=== PATIENT | male | born 1945 | race Caucasian/White ===

== ENCOUNTER → 2016-10-16 | Outpatient (CLI) | payer OTHER ==
[~2016-10-16] MED LIST: ATOR10TA88 PO; HYDR25TA4 PO; LEVO25TA PO; LOSA100T65 PO; OMEG10007 PO
[2016-10-16 11:25] LABS: ALT/SGPT 42 U/L (12-78); AST/SGOT 21 U/L (15-37); BLOOD UREA NITROGEN 19 mg/dl (7-18); BUN/CREATININE RATIO 15.9 (10-20); CARBON DIOXIDE 24 mmol/L (21-32); CHLORIDE 108 mmol/L (98-107); GLUCOSE 103 mg/dl (70-99); POTASSIUM 3.5 mmol/L (3.5-5.1); SODIUM 142 mmol/L (136-145)
[2016-10-16 11:36] LABS: ALKALINE PHOSPHATASE 23 U/L (45-117); CHOLESTEROL 173 mg/dl (0-200); HDL CHOLESTEROL 57 mg/dl; LDL CHOLESTEROL CALCULATED 82 mg/dl; TRIGLYCERIDES 172 mg/dl (0-150); VERY LOW DENSITY LIPOPROT CALC 34 mg/dl
== END | disposition home or self-care (01) ==
LOC: C.LABBC 07:48
PROVIDERS: ATTEND Family Medicine
DX: I10 Essential (primary) hypertension (principal); E78.5 Hyperlipidemia, unspecified; E03.9 Hypothyroidism, unspecified

== ENCOUNTER → 2017-04-06 | Outpatient (CLI) | payer OTHER ==
[2017-04-06 11:24] LABS: ALT/SGPT 40 U/L (12-78); BLOOD UREA NITROGEN 19 mg/dl (7-18); BUN/CREATININE RATIO 17.4 (10-20); CARBON DIOXIDE 26 mmol/L (21-32); CHLORIDE 107 mmol/L (98-107); CHOLESTEROL 170 mg/dl (0-200); GLUCOSE 101 mg/dl (70-99); POTASSIUM 3.6 mmol/L (3.5-5.1); SODIUM 140 mmol/L (136-145)
[2017-04-06 11:35] LABS: ALB/GLOB RATIO 1.1 (0.9-2); ALKALINE PHOSPHATASE 25 U/L (45-117); AST/SGOT 21 U/L (15-37); CHOLESTEROL/HDL RATIO 2.7; HDL CHOLESTEROL 62 mg/dl; LDL CHOLESTEROL CALCULATED 82 mg/dl; TRIGLYCERIDES 132 mg/dl (0-150); VERY LOW DENSITY LIPOPROT CALC 26 mg/dl
== END | disposition home or self-care (01) ==
LOC: C.LABBC 07:35
PROVIDERS: ATTEND Family Medicine
DX: I10 Essential (primary) hypertension (principal); E78.5 Hyperlipidemia, unspecified; E03.9 Hypothyroidism, unspecified; Z12.5 Encounter for screening for malignant neoplasm of prostate

== ENCOUNTER 2017-07-25 12:14 | Emergency (ER) | payer OTHER ==
[~2017-07-25] VITALS: Ht 177.8 cm; Wt 82.0 kg
[~2017-07-25 12:14] MED LIST changes: +ATOR10TA82 PO; -ATOR10TA88 PO
[2017-07-25 12:20] VITALS: Ht 177.8 cm; Wt 82.0 kg
[2017-07-25] MEDS ORDERED: LEVO75TA5 PO (12:30)
[2017-07-25] MEDS ORDERED: PSYL0.524 PO (12:30)
[2017-07-25] MEDS ORDERED: AMOX875T PO (12:52)
--- NOTE | 2017-07-25 12:54 | EMERGENCY ROOM VISIT NOTE ---
ED Visit Note First contact with patient: 12:27 CHIEF COMPLAINT: Dog bite of the left hand HISTORY OF PRESENT ILLNESS: This is a 72-year-old male who presents to the emergency department after a dog bite to his left hand earlier today. Patient states that it was his dog, and he is up-to-date on immunizations. He states that his dog got into a tussle with another dog he tried to pull his dog away and when he did, that his dog bit him on the left hand. He reports moderate amount of bleeding initially, this has slowed. He is unsure of his last tetanus but thinks it could be more than 10 years. He is not on any blood thinners. He denies any numbness, tingling, or weakness of the hand after the injury. He denies any other injuries. The area has not been painful and the patient doesn't think there is anything in the wound. REVIEW OF SYSTEMS: A complete 6 point review of systems was reviewed with the patient with pertinent positives and negatives as per history of present illness. All else were negative. PMH: The patient is healthy; there is no significant medical or surgical history. SOCIAL HISTORY: Patient lives at home. PHYSICAL EXAM: Vital Signs: Reviewed Nurse's notes. There are 4 small puncture wounds on the lateral and palmar aspect of the left hand. No foreign material is seen in the wound. The epidermis was lifted off the puncture site and the base of the wound inspected. No foreign material could be seen there. The area was not particularly tender or swollen. EMERGENCY DEPARTMENT COURSE: I examined the patient. Tetanus immunization was given. The wound was cleaned with iodine and bacitracin and a bandage applied. Rx for Augmentin provided to the patient, first dose in ED. The patient was instructed on follow-up, wound care, and strict return precautions should his symptoms worsen or signs of infection, he verbalized understanding. The patient was discharged home in stable condition and ambulatory. Medication Reconciliation: I attest that I have personally reviewed the patient' s current medication list. Blood pressure screening: The patient was found to have an elevated blood pressure, this was felt to be situational. The patient was discussed with Dr. Ray, who also independently evaluated the patient and agrees with my assessment and disposition. Current/Historical Medications Scheduled Amoxicillin & Pot Clavulanate (Augmentin 875-125 mg), 1 TAB PO BID Atorvastatin (Lipitor), 10 MG PO QAM Fish Oil ([place]-3), 1 CAP PO QAM Hydrochlorothiazide (Hctz), 25 MG PO QAM Levothyroxine Sodium (Levothyroxine Sodium), 1 TAB PO DAILY Losartan Potassium (Cozaar), 100 MG PO QAM Psyllium (Metamucil), 2 TSP PO DAILY Allergies Coded Allergies: No Known Allergies (Verified , 07/25/17) Vital Signs Date Time Temp Pulse Resp B/P (MAP) Pulse Ox O2 Delivery O2 Flow Rate FiO2 07/25/17 13:52 36.5 84 16 136/92 96 07/25/17 12:20 36.5 70 16 147/87 97 Medications Administered Medications (Trade) Dose Ordered Sig/Ana Route Start Time Stop Time Status Last Admin Dose Admin Diphtheria/ Pertussis/Tetanus Vacc (Adacel Inj) 0.5 ml ONCE ONCE IM. 07/25/17 13:00 07/25/17 13:01 DC 07/25/17 12:54 0.5 ML Amoxicillin/ Clavulanate Potassium (Augmentin Tab) 875 mg ONE ONCE PO 07/25/17 13:00 07/25/17 13:01 DC 07/25/17 12:54 875 MG Amoxicillin/ Clavulanate Potassium (Augmentin Tab) 875 mg BID PO 07/25/17 21:00 07/25/17 21:00 DC 07/25/17 12:54 875 MG Departure Information Impression Primary Impression: Dog bite of left hand Dispostion Home / Self-Care Condition GOOD Prescriptions Amoxicillin & Pot Clavulanate (Augmentin 875-125 mg) 1 Tab Tab 1 TAB PO BID for 9 Days, #18 TAB Prov: Enid Kamara CRNP 07/25/17 Referrals Hannah Yao DO (PCP) Patient Instructions ED Bite Dog, ED Contusion Hand, My [facility] Additional Instructions You have been seen in the emergency department for a dog bite to your left hand. You were prescribed Augmentin to be taken twice a day for 10 days. This is an antibiotic. All antibiotics have the potential to cause diarrhea, you should eat yogurt or take a probiotic daily to help prevent gastrointestinal side effect. Stop this medication and contact a medical provider if you were to develop any significant adverse side effects including: wheezing, shortness of breath, passing out, vomiting, or a diffuse rash. Always take antibiotics as directed and COMPLETE the ENTIRE course regardless of the improvement of your symptoms. Observe the area closely for signs of infection such as redness, swelling, increasing pain, streaking up the hand/arm, pus drainage, fevers/chills. Please seek immediate medical attention for any of these symptoms. Please follow-up with your primary care provider in the next few days to ensure that your wound is healing properly. Problem Qualifiers Primary Impression: Dog bite of left hand Encounter type: initial encounter Qualified Codes: S61.452A - Open bite of left hand, initial encounter; W54.0XXA - Bitten by dog, initial encounter
[2017-07-25] MEDS ORDERED: DIPHTHERIA/TETANUS/PERTUSSIS 0.5 ML SYR/VIAL IM. ONE (13:00)
[2017-07-25] MEDS ORDERED: AMOXICILLIN/CLAVULANATE TAB 875 MG TAB PO ONE (13:00)
--- NOTE | 2017-07-25 13:39 | EMERGENCY ROOM VISIT NOTE ---
ED Visit Note First contact with patient: 12:27 This Patient was discussed with the nurse practitioner, Enid Kamara NP. The pertinent historical and physical exam findings were confirmed. I agree with the studies ordered and with the interpretations of these studies. I agree with the disposition and care plan.
[2017-07-25 13:52] VITALS: BP 136/92; PULSE 84; TEMP 36.5; O2SAT 96
[2017-07-25] MEDS ORDERED: AMOXICILLIN/CLAVULANATE TAB 875 MG TAB PO SCH (21:00)
== END 2017-07-25 13:53 | disposition home or self-care (01) ==
LOC: C.EDB 12:15 → C.EDD 13:53
DX: S61.452A Open bite of left hand, initial encounter (principal); W54.0XXA Bitten by dog, initial encounter; Z23 Encounter for immunization

== ENCOUNTER → 2017-11-19 | Outpatient (CLI) | payer OTHER ==
[~2017-11-19] MED LIST changes: -LEVO25TA PO; +LEVO75TA5 PO; +PSYL0.524 PO
[2017-11-19 10:37] LABS: HEMATOCRIT 40.9 % (42-52); HEMOGLOBIN 14.6 g/dL (14.0-18.0); MEAN CELL VOLUME 96.2 fL (80-100); MEAN CORPUSCULAR HEMOGLOBIN 34.4 pg (25-34); MEAN CORPUSCULAR HGB CONC 35.7 g/dl (32-36); MEAN PLATELET VOLUME 9.6 fL (7.4-10.4); PLATELET COUNT 222 K/uL (130-400); RED CELL DISTRIBUTION WIDTH CV 12.8 % (11.5-14.5); RED CELL DISTRIBUTION WIDTH SD 44.1 fL (36.4-46.3); WHITE BLOOD COUNT 5.21 K/uL (4.8-10.8)
[2017-11-19 11:25] LABS: ALBUMIN 3.9 gm/dl (3.4-5.0); ALT/SGPT 50 U/L (12-78); AST/SGOT 33 U/L (15-37); BLOOD UREA NITROGEN 24 mg/dl (7-18); CALCIUM 9.3 mg/dl (8.5-10.1); CARBON DIOXIDE 24 mmol/L (21-32); CREATININE 1.08 mg/dl (0.60-1.40); GLUCOSE 105 mg/dl (70-99); POTASSIUM 3.5 mmol/L (3.5-5.1); SODIUM 138 mmol/L (136-145)
[2017-11-19 11:36] LABS: ALKALINE PHOSPHATASE 31 U/L (45-117); CHOLESTEROL 163 mg/dl (0-200); LDL CHOLESTEROL CALCULATED 77 mg/dl; TOTAL PROTEIN 7.7 gm/dl (6.4-8.2)
== END | disposition home or self-care (01) ==
LOC: C.LABBC 07:37
PROVIDERS: ATTEND Family Medicine
DX: I10 Essential (primary) hypertension (principal); E78.5 Hyperlipidemia, unspecified; E03.9 Hypothyroidism, unspecified

== ENCOUNTER 2020-03-23 07:48 | Observation (INO) ==
--- NOTE | 2020-02-27 14:20 | PAT Medication Instructions ---
Medication Instructions Date of Service February 27, 2020 Home Medications Medication Instructions Recorded atorvastatin 10 mg tablet 10 mg PO DAILY #90 tab 01/04/19 oxycodone-acetaminophen [Percocet] 1 tab PO Q6H PRN #20 tab 01/19/20 atorvastatin 10 mg tablet 10 mg PO DAILY omega-3 360 jd-old-qwx-fish oil 1,200 mg capsule,delayed release 1 cap PO QAM magnesium 200 mg tablet 200 mg PO DAILY hydrochlorothiazide 25 mg PO QAM levothyroxine 75 mcg PO QAM losartan 100 mg PO QAM potassium chloride 10 meq PO QAM oxycodone-acetaminophen [Percocet] 1 tab PO Q6H PRN STOP taking 2 weeks before surgery omega-3 360 rx-wcg-jpy-fish oil 1,200 mg capsule,delayed release 1 cap PO QAM DO NOT take the morning of surgery magnesium 200 mg tablet 200 mg PO DAILY hydrochlorothiazide 25 mg PO QAM losartan 100 mg PO QAM potassium chloride 10 meq PO QAM Take morning of surgery With a small sip of water, OTHERWISE NOTHING TO EAT OR DRINK AFTER MIDNIGHT: atorvastatin 10 mg tablet 10 mg PO DAILY levothyroxine 75 mcg PO QAM oxycodone-acetaminophen [Percocet] 1 tab PO Q6H PRN (okay to take up to 4 hours prior to surgery if needed) Take evening before surgery oxycodone-acetaminophen [Percocet] 1 tab PO Q6H PRN (if needed) Other Notes If you have any questions please call us at [phone] or [phone] or [phone] or [phone]
--- NOTE | 2020-02-29 10:24 | Anesthesiology Consultation ---
Date of Service February 29, 2020 Assessment & Plan (1) Encounter for pre-operative examination: Chart Review Chart Review: Acceptable Risk for Surgery (pending preop Covid testing ) and Patient seen in Pre Admission Testing Per PAT appt on 02/29/20, patient denies any recent travel. Scheduled for preop Covid testing 03/19. Educated on importance of self quarantining, social distancing and wearing mask in public both for the patient and household contacts. Right CTR 01/19/20= Done under MAC- no issues noted Teaching & Discussion Pre-Anesthesia Teaching/Discussion Notes: Instructed NPO after midnight before surgery,except medications with 15 cc of water. Medication instructions provided according to the PAT guidelines. History Surgery Operation Date: 03/23/20 13:15 Proposed Procedures p Right Total Knee Arthroplasty - Alex Taylor DO Height/Weight Height: 5 ft 10 in Weight: 83.4 kg Allergies Allergy/AdvReac Type Severity Reaction Status Date / Time No Known Allergies Allergy Verified 02/24/20 09:27 Medications Home Medications Medication Instructions Recorded Confirmed Last Taken omega-3 360 ql-wwz-iqh-fish oil 1 cap PO QAM 01/04/19 02/24/20 Unknown 1,200 mg capsule,delayed release magnesium 200 mg tablet 200 mg PO DAILY 07/29/19 02/24/20 Unknown losartan 100 mg PO QAM 01/10/20 02/24/20 01/19/20 05:15 oxycodone-acetaminophen [Percocet] 1 tab PO Q6H PRN #20 tab 01/19/20 02/24/20 Unknown atorvastatin 10 mg tablet 10 mg PO DAILY #90 tab 02/29/20 Unknown hydrochlorothiazide 25 mg tablet 25 mg PO QAM #90 tab 02/29/20 Unknown levothyroxine 75 mcg tablet 75 mcg PO QAM #90 tab 02/29/20 Unknown potassium chloride 10 mEq 10 meq PO QAM #90 cap 02/29/20 Unknown capsule,extended release Past Medical History Medical History (Updated 02/29/20 @ 10:49 by Zainab Carr PA-C) Benign essential hypertension Hyperlipidemia Hypothyroidism Exercise / Class Metabolic Activity II 4-5 Yardwork/Stairs/Walk up hill (one flight stairs - no chest pain or SOB) Past Family History Family History Mother Uterine cancer Father Lymph node cancer Denies family history of Ovarian cancer Prostate cancer Myocardial infarction Breast cancer Colorectal cancer Past Surgical History Surgical History Glaucoma filtering bleb of left eye History of carpal tunnel surgery of right wrist History of colonoscopy History of eye surgery "FILTERING BLOOD" History of tooth extraction S/P cataract surgery LEFT Past Anesthesia History No Hx of Anesthesia Complications and No Family Hx of Anesthesia Complications History of PONV No Hx of Motion Sickness and History of PONV (history of mild nausea post op ) Social History Smoking Status: Former smoker tobacco type: cigarettes Do You Dip or Chew Tobacco: No Smoking End Date: 25 years ago Hx Alcohol Use: Yes Alcohol type: beer and wine alcohol intake frequency: 0-2 drinks per day (1 glass daily of wine ) Hx Substance Use: No substance use type: does not use Review of Systems Occ snoring- no witnessed apnea- no history of sleep study Patient denies chest pain, shortness of breath, dyspnea on exertion, reflux, c ough, wheezing, palpitations. No hx of seizures, stroke, [place]. No hx of blood clots or blood transfusions Physical Exam Vital Signs VITALS BP 154/83 P 79 TEMP 98.2 SP02 97% RESP 16 Constitutional no acute distress ENMT Mouth: no TMJ clicking Thyromental Distance: > or= 3.5 Finger Breadths (3.5) Mallampati Class: II Full dentures on top and bottom Neck + limited neck extension (minimal ) Respiratory normal respiratory effort; no respiratory distress Auscultation: lungs clear to auscultation bilaterally; no wheezes Cardiovascular Rate/Rhythm: regular rate and regular rhythm Heart Sounds: no murmur Vessels: no carotid bruit Musculoskeletal Spine: no pain with cervical ROM Neurologic moves all extremities Psychiatric Orientation: alert Testing Laboratory Results 02/29/20 10:51 02/29/20 10:51 PT 10.9 Seconds (9.0-12.0) 02/29/20 10:51 INR 1.0 (0.9-1.1) 02/29/20 10:51 APTT 32.2 Seconds (21.0-31.0) H 02/29/20 10:51 Blood Type O Positive 08/05/20 10:51 Antibody Screen NEGATIVE 02/29/20 10:51 Electrocardiogram Date: 02/29/20 Findings: + NSR @ (70) Chest X-Ray Date: 02/29/20 Findings: + NAD Hiatal hernia
--- NOTE | 2020-02-29 11:09 | XRay Report ---
XR chest Pre-admission PA/Lat HISTORY: 74 years-old Male u preoperative exam. No acute chest complaints COMPARISON: CT soft tissue neck 05/05/2016 TECHNIQUE: PA and lateral views of the chest FINDINGS: Cardiomediastinal and hilar silhouettes are within normal limits. Calcified plaque of the thoracic ao rta can't. Hiatal hernia. No pneumothorax, pleural effusion, airspace consolidation or overt pulmonar y edema. Mild convex left curvature of the upper thoracic spine. Degenerative changes of the shoulder s and spine. IMPRESSION: 1. No acute process. 2. Hiatal hernia. ACT 112: Negative or not required by law. The above report was generated using voice recognition software. It may contain grammatical, syntax o r spelling errors. Electronically signed by: Kvng Sharp M.D. 02/29/2020 11:08 AM
--- NOTE | 2020-02-29 11:58 | Electrocardiogram Report ---
Test Reason : Blood Pressure : / mmHG Vent. Rate : 070 BPM Atrial Rate : 070 BPM P-R Int : 194 ms QRS Dur : 086 ms QT Int : 410 ms P-R-T Axes : 071 -14 039 degrees QTc Int : 442 ms Normal sinus rhythm Normal ECG No previous ECGs available Confirmed by Ryan Garcia ([id number]) on 02/29/2020 11:58:06 AM Referred By: Alex Taylor Confirmed By:Grzegorz Garcia
[2020-02-29 12:00] LABS: Basophils # (auto) 0.02 K/uL (0-0.2); Basophils % (auto) 0.4 %; Eosinophils # (auto) 0.14 K/uL (0-0.5); Eosinophils % (auto) 2.9 %; Hematocrit (blood only) 40.4 % (42-52); Hemoglobin 14.5 g/dL (14.0-18.0); Immature Granulocytes # (auto) 0.02 K/uL (0.00-0.02); Immature Granulocytes % (auto) 0.4 %; Lymphocytes # (auto) 1.69 K/uL (1.2-3.4); Lymphocytes % (auto) 34.6 %; Mean Corpuscular Hemoglobin 34.6 pg (25-34); Mean Corpuscular Hgb Conc 35.9 g/dL (32-36); Mean Corpuscular Volume 96.4 fL (80-100); Mean Platelet Volume 9.8 fL (7.4-10.4); Monocytes # (auto) 0.55 K/uL (0.11-0.59); Monocytes % (auto) 11.2 %; Neutrophils # (auto) 2.47 K/uL (1.4-6.5); Neutrophils % (auto) 50.5 %; Platelet Count 209 K/uL (130-400); RDW Coefficient of Variation 12.4 % (11.5-14.5); RDW Standard Deviation 43.3 fL (36.4-46.3); Red Blood Count 4.19 M/uL (4.7-6.1); White Blood Count 4.89 K/uL (4.8-10.8)
[2020-02-29 12:12] LABS: Partial Thromboplastin Ratio 1.2; Partial Thromboplastin Time 32.2 Seconds (21.0-31.0); Prothrombin Time 10.9 Seconds (9.0-12.0)
[2020-02-29 13:30] LABS: BUN Creatinine Ratio 23.4 (10-20); Calcium 9.6 mg/dl (8.5-10.1); Creatinine Clr Calc Pharmacy 57.2 ml/min; Est GFR (African American) 70.8; Est GFR (Non-African American) 61.1; Potassium 3.2 mmol/L (3.5-5.1)
--- NOTE | 2020-03-22 06:54 | History & Physical Report ---
Date of Service March 22, 2020 Assessment & Plan (1) Osteoarthritis of right knee: We will proceed with a right total knee arthroplasty. Postoperatively he will be started on aspirin for DVT prophylaxis and kept overnight in the hospital for postoperative medical management. He plans to use energy physical therapy upon discharge. Present on Admission?: Yes History of Present Illness Chief Complaint: Primary osteoarthritis of the right knee Primary Care Provider: Juana Ortega MD Dave is a pleasant 74-year-old male who is been dealing with chronic increasing right knee pain. X-rays and clinical examination have been diagnostic for advanced osteoarthritis of the right knee. After failing extensive conservative treatment, he has elected to proceed with a right total knee arthroplasty. Allergies Allergy/AdvReac Type Severity Reaction Status Date / Time No Known Allergies Allergy Verified 02/24/20 09:27 Home Medications Home Medications Medication Instructions Recorded Confirmed Type omega-3 360 ap-tbd-eeb-fish oil 1 cap PO QAM 01/04/19 02/24/20 History 1,200 mg capsule,delayed release magnesium 200 mg tablet 200 mg PO DAILY 07/29/19 02/24/20 History losartan 100 mg PO QAM 01/10/20 02/24/20 History oxycodone-acetaminophen [Percocet] 1 tab PO Q6H PRN #20 tab 01/19/20 02/24/20 Rx atorvastatin 10 mg tablet 10 mg PO DAILY #90 tab 02/29/20 Rx hydrochlorothiazide 25 mg tablet 25 mg PO QAM #90 tab 02/29/20 Rx levothyroxine 75 mcg tablet 75 mcg PO QAM #90 tab 02/29/20 Rx potassium chloride 10 mEq 10 meq PO QAM #90 cap 02/29/20 Rx capsule,extended release Past Med/Surg History Medical History Benign essential hypertension Hyperlipidemia Hypothyroidism Surgical History Glaucoma filtering bleb of left eye History of carpal tunnel surgery of right wrist History of colonoscopy History of eye surgery "FILTERING BLOOD" History of tooth extraction S/P cataract surgery LEFT Family History Mother Uterine cancer Father Lymph node cancer Denies family history of Ovarian cancer Prostate cancer Myocardial infarction Breast cancer Colorectal cancer Social History Smoking Status: Former smoker Smoking End Date: 25 years ago; Second Hand Exposure: Yes (past exposure); Do You Dip or Chew Tobacco: No; Tobacco Cessation Education Requested by Patient: No Hx Alcohol Use: Yes Alcohol type: beer and wine Hx Substance Use: No Preferred Language: Kinyarwanda Communication Ability: Effective Visual Impairment: No Limitations Hearing Ability: Normal Nurse Assistant Required: No Beliefs That Will Affect Care: None marital status: Current Living Situation: Spouse current occupational status: retired Feels Safe at Home: Yes Safety Concerns: Feels Safe At This Time Dental Care, Regularly: No Physical Activity Frequency: Does not Exercise Seatbelt Use: always Sunscreen Use: No Review of Systems Review of Systems: All systems reviewed & are unremarkable except as noted in HPI & below Physical Exam Constitutional: WD/WN, vitals as above Eyes: PERRL, conjunctivae normal, anicteric sclerae ENMT: external ear and nose normal, oropharynx normal Neck: trachea midline, no thyromegaly Respiratory: normal respiratory effort Cardiovascular: RRR, no murmur, no edema Gastrointestinal (Abdomen): normal bowel sounds, soft, nontender, no hepatosplenomegaly Musculoskeletal: On physical examination of the right knee there is a trace effusion. There is near full range of motion and no evidence of instability. There is significant tenderness palpation along the medial and lateral joint lines and over the distal femoral condyles. Psychiatric: A+Ox3, euthymic affect Results & Data Results & Data ([facility]) Diagnostic Findings Radiographs of the right knee demonstrate advanced osteoarthritis with joint space narrowing osteophyte formation and pquf-ik-mymq articulation. PG Care Time/CCT Total # of Minutes Spent Total Time Spent with Patient: Total time spent is greater than 50% in coordination of care (as documented) at patient's floor/unit and/or counseling patient: Coding Level of Care Code 90639 Initial Inpt Care Lvl 2 Diagnoses Osteoarthritis of right knee M17.11
[~2020-03-23 07:48] MED LIST changes: -ATOR10TA82 PO; +BUPIVACAINE 0.5 % 5 MG/1 ML PF 10ML VIAL ONE; +BUPIVACAINE/EPINEPHRINE 0.25% 1:200,000 30 ML VIAL ONE; +CEFAZOLIN 2000MG 2,000 MG/15 ML SYR IV SCH; +DEXAMETHASONE SOD INJ 4 MG/ML VIAL ONE; +FAMOTIDINE 20 MG TAB PO SCH; +GABAPENTIN 300 MG CAP PO SCH; -HYDR25TA4 PO; -LEVO75TA5 PO; +LIDOCAINE HCL 2% 2 ML VIAL/AMP(20MG/ML) INFIL ONE; -LOSA100T65 PO; +LR 500ML BOLUS, THEN 15ML/HR IV SCH; +LR 60ML/HR IV SCH; +MIDAZOLAM HCL 1 MG/ML 2ML VIAL ONE; -OMEG10007 PO; +ONDANSETRON INJ 2 MG/ML 2 ML VIAL ONE; +PROPOFOL IV EMULSION 10 MG/ML 20 ML VIAL IV ONE; -PSYL0.524 PO; +ROPIVACAINE 0.5% HCL/PF 150 MG, BUPIVACAINE 0.5% MPF 30 ML, EPINEPHrine 30MG/30ML (OR U... INSTIL SCH; +TRANEXAMIC ACID 1,000 MG **IV Intra-op IV SCH; +TRANEXAMIC ACID 1,000 MG **IV Pre-op IV SCH; +fentaNYL citrate 100 MCG/2 ML VIAL ONE
--- NOTE | 2020-03-23 08:25 | History & Physical Bridge Note ---
Date of Service March 23, 2020 History & Physical Bridge Note I have examined the patient, reviewed the History & Physical and in the interval since the performance of the History & Physical I have noted the following changes of clinical significance: no changes noted
[2020-03-23] MEDS ORDERED: ORTHO JOINT ANESTHETIC ONE (08:54)
[2020-03-23] MEDS ORDERED: fentaNYL citrate 100 MCG/2 ML VIAL IV PRN (09:36)
[2020-03-23] MEDS ORDERED: ATROPINE SULFATE 0.1 MG/ML 10ML SYR IV PRN (09:36)
[2020-03-23] MEDS ORDERED: ePHEDrine sulfate 50 MG/ML AMP IV PRN (09:36)
[2020-03-23] MEDS ORDERED: ONDANSETRON INJ 2 MG/ML 2 ML VIAL IV PRN ×2 (09:36→13:40)
[2020-03-23] MEDS ORDERED: ePHEDrine sulfate 50 MG/ML AMP ONE (10:15)
--- NOTE | 2020-03-23 11:05 | Operative Report ---
PG Post Operative Report Pre & Post Diagnosis Operation Date: 03/23/20 10:20 Pre-Op Diagnosis: Right Knee Degenerative Joint Disease Post-Op Diagnosis: Right Knee Degenerative Joint Disease I identified the patient and participated in the time-out.: Yes Procedure Operation Date: 03/23/20 10:20 Actual Procedures p Right Total Knee Arthroplasty(Right) - Alex Taylor DO Surgeon Alex Taylor DO [employer] Alex Reynaga PAC Estimated Blood Loss 20 Findings Consistent with Post-Op Diagnosis Specimens Right femoral and tibial bone Complications none Disposition Disposition: Recovery Room Indications Dave is a pleasant 74-year-old male who presented my office with chronic increasing right knee pain. X-rays clinical examination were diagnostic for advanced osteoarthritis of the right knee. After failing conservative treatment, he elected proceed with a right total knee arthroplasty. Description of Procedure Implants used: I used a Mirlande Persona total knee arthroplasty system with a size 9 standard femur, F tibia, 32 patella, and a size 13 medial congruent polyethylene bearing. All components were cemented in place with Palacos G cement. Dave arrived [facility] for the above procedure. He was seen in the preoperative holding area and the operative extremity was identified and signed. He was given a preoperative antibiotic, TXA, a spinal anesthetic and an adductor nerve block. He was taken back to the operating room and laid on the table in supine position. He was given basic sedation. The operative knee was then prepped and draped in sterile fashion. A timeout was done, and the patient and the operative extremity was properly identified. A midline incision was made directly over the patella. Dissection was taken down to the extensor mechanism. A subvastus arthrotomy was used. The medial retinaculum was released and the fat pad was mostly excised. The knee was flexed and the ACL, PCL, and meniscus were removed. A drill was sent down the center of the femoral canal followed by an intramedullary kari. Off that kari a distal femoral cutting block was placed. 9 mm was resected off the distal femur at 5 of valgus. A posterior referencing AP sizing guide was then placed on the distal femur. The femur measured to be a size 9 standard. 2 drill holes were placed in 3 of external rotation. A 4-in-1 cutting block was then impacted into place. Anterior, posterior, and chamfer cuts were then made. The proximal tibia was then exposed. An external tibial alignment guide was placed. A tibial cut guide was then anchored in place and the proximal tibia was then resected. The posterior aspect of the knee was then opened up and any additional meniscus fragments and osteophytes were removed. The tibia measured to be a size F. The tibial plate was then placed in the appropriate rotation and the tibia was drilled and punched. Trial components were then placed. I used a size 13 medial congruent polyethylene insert. The knee was brought through a full range of motion and felt to be stable. The peg holes for the femoral component were then drilled. The patella was then everted and 9 mm was resected off the posterior aspect of the patella. The patella measured to be a size 32. 3 peg holes were then drilled. A trial patella was placed. The knee was once again brought through a full range of motion and felt to be stable. Trial components were then removed. The surrounding soft tissues were injected with 100 cc of an orthopedic pain control cocktail. All components were then cemented into place with Palacos G cement. The final polyethylene insert was then snapped into place. Once cement was dry the tourniquet was deflated. Hemostasis was obtained. A dilute betadyne lavage was then done for 3 minutes. The joint was then irrigated with normal saline solution. The subvastus arthrotomy was then closed with #1 Vicryl suture. The skin was closed with 2-0 Vicryl, 3-0V lock suture, and evie. A Silverlon and a soft compressive dressing were placed. He was then transferred to a hospital bed and taken to the postanesthesia care unit in stable condition. He tolerated the procedure well. Alex Reynaga PA-C, was present for the entire procedure. He was critical for patient positioning, prepping, draping, retraction exposure, wound closure and application of sterile dressing. I attest to the content of the Intraoperative Record and any orders documented therein. Any exceptions are noted below.
--- NOTE | 2020-03-23 11:55 | XRay Report ---
RIGHT KNEE 2 VIEWS History: Right total knee arthroplasty. Degenerative arthritis. Postop. FINDINGS: The patient is status post a right total knee arthroplasty. The hardware is intact. No frac ture or dislocation. Skin evie are in place. IMPRESSION: Right total knee arthroplasty. No evidence for hardware complication. ACT 112: Negative or not required by law. Electronically signed by: Suhail Mccarthy M.D. 03/23/2020 11:54 AM
--- NOTE | 2020-03-23 12:33 | Anesthesiology Progress Note ---
Date of Service March 23, 2020 Anesthesia Post Procedure Vital Signs Vital Signs: Temp Pulse Pulse Resp BP BP Pulse Ox 03/23/20 12:15 61 17 107/64 96 03/23/20 12:05 64 19 117/61 96 03/23/20 11:55 66 20 104/68 97 03/23/20 11:45 65 18 102/58 L 94 03/23/20 11:35 67 20 97/60 L 94 03/23/20 11:29 36.1 C L 75 21 103/54 L 93 03/23/20 09:29 66 18 152/84 H 100 03/23/20 08:50 36.8 C 70 20 164/78 H 96 Pain Intensity Right Knee: Pain Intensity: 1 Transfer of Care Handoff Completed per policy Notes Mental Status: alert / awake / arousable Patient Amnestic to Procedure: Yes Nausea / Vomiting: adequately controlled Pain: adequately controlled Airway Patency, RR, SpO2: stable & adequate BP & HR: stable & adequate Hydration State: stable & adequate Neuraxial Anesthesia: was administered and sensory block is resolving Anesthetic Complications: no major complications apparent
[2020-03-23] MEDS ORDERED: METOCLOPRAMIDE HCL INJ 5 MG/ML 2 ML VIAL IV PRN (13:40)
[2020-03-23] MEDS ORDERED: MAGNESIUM HYDROXIDE SUSP 30 ML UDC PO PRN (13:40)
[2020-03-23] MEDS ORDERED: HYDROmorphone INJ 0.5 MG/0.5 ML SYR IV PRN (13:40)
[2020-03-23] MEDS ORDERED: bisacodyL 10 MG SUPP PR PRN (13:40)
[2020-03-23] MEDS ORDERED: OXYCODONE HCL IR 5 MG TAB (IMMEDIATE RELEASE) PO PRN (13:40)
[2020-03-23] MEDS ORDERED: NALOXONE HCL 0.4 MG/1 ML VIAL/CARP IV PRN (13:40)
[2020-03-23] MEDS: ACETAMINOPHEN 500 MG TAB PO SCH ×2 (14:23→21:16)
[2020-03-23] MEDS: KETOROLAC TROMETHAMINE 15 MG/ML VIAL IV SCH ×2 (14:24→19:48)
[2020-03-23] MEDS: SODIUM CHLORIDE 0.9% 1000ML 1,000 ML IV SCH ×2 (14:24→23:57)
[2020-03-23] MEDS: CEFAZOLIN 2000MG 2,000 MG/15 ML SYR IV SCH (17:08)
[2020-03-23] MEDS ORDERED: SENNA 8.6 MG TAB PO SCH (21:00)
[2020-03-23] MEDS: ASPIRIN 81 MG ECTAB PO SCH (21:16)
[2020-03-23] MEDS: DOCUSATE SODIUM 100 MG CAP PO SCH (21:16)
[2020-03-24] MEDS: KETOROLAC TROMETHAMINE 15 MG/ML VIAL IV SCH ×3 (02:38→13:24)
[2020-03-24] MEDS: CEFAZOLIN 2000MG 2,000 MG/15 ML SYR IV SCH (02:39)
[2020-03-24] MEDS: ACETAMINOPHEN 500 MG TAB PO SCH ×2 (05:36→13:24)
[2020-03-24 06:08] LABS: Hematocrit (blood only) 30.1 % (42-52); Hemoglobin 10.6 g/dL (14.0-18.0); Mean Corpuscular Hemoglobin 34.4 pg (25-34); Mean Corpuscular Hgb Conc 35.2 g/dL (32-36); Mean Corpuscular Volume 97.7 fL (80-100); Mean Platelet Volume 9.3 fL (7.4-10.4); Platelet Count 199 K/uL (130-400); RDW Coefficient of Variation 12.3 % (11.5-14.5); RDW Standard Deviation 43.5 fL (36.4-46.3); Red Blood Count 3.08 M/uL (4.7-6.1); White Blood Count 16.12 K/uL (4.8-10.8)
[2020-03-24] MEDS ORDERED: LEVOTHYROXINE SODIUM 75 MCG TABLET PO SCH (06:30)
[2020-03-24 06:37] LABS: Calcium 8.5 mg/dl (8.5-10.1); Creatinine Clr Calc Pharmacy 49.2 ml/min; Est GFR (Non-African American) 50.9; Potassium 3.8 mmol/L (3.5-5.1)
[2020-03-24] MEDS: DOCUSATE SODIUM 100 MG CAP PO SCH (07:34)
[2020-03-24] MEDS: ASPIRIN 81 MG ECTAB PO SCH (07:36)
--- NOTE | 2020-03-24 07:49 | Orthopedic Progress Note ---
Date of Service March 24, 2020 Assessment & Plan (1) Status post right knee replacement: Overall he is doing very well. He is not having much pain in the right knee. He will be seen by physical therapy this morning for ambulation and range of motion exercises. He is on aspirin for DVT prophylaxis. He can be discharged home later today. He will follow-up with orthopedics in 2 weeks. Present on Admission?: Yes Admission and Anticipated Discharge Date Admission Date: March 23, 2020 Donna Acosta was seen and examined at bedside this morning. Overall he is doing very well. Is not having much pain in the right knee. He has been up and ambulating. He has no complaints. Physical Exam Musculoskeletal: On physical examination of the right knee, the dressing is clean and dry. His legs out in full extension. He has active dorsiflexion and plantarflexion of his right ankle. Results & Data ([facility]) Vital Signs (Past 12 Hours) Vital Signs Temp Pulse Resp BP Pulse Ox 03/24/20 02:33 36.5 C 66 16 114/63 98 03/23/20 23:17 36.6 C 73 16 118/61 95 Laboratory Results H & H 02/29/20 03/24/20 Range/Units 10:51 05:49 Hgb 14.5 10.6 L (14.0-18.0) g/dL Hct 40.4 L 30.1 L (42-52) % Coagulation 02/29/20 Range/Units 10:51 INR 1.0 (0.9-1.1) Diagnostic Findings Postoperative x-rays of the right knee show the prosthesis to be in anatomic alignment without any evidence of fracture, dislocation, or loosening. PG Care Time/CCT Total # of Minutes Spent Total Time Spent with Patient: Total time spent is greater than 50% in coordination of care (as documented) at patient's floor/unit and/or counseling patient: Coding Level of Care Code None Diagnoses Status post right knee replacement Z96.651
--- NOTE | 2020-03-24 07:50 | Discharge Summary ---
Date of Service March 24, 2020 Admission HPI Per Admitting Provider Dave is a pleasant 74-year-old male who is been dealing with chronic increasing right knee pain. X-rays and clinical examination have been diagnostic for advanced osteoarthritis of the right knee. After failing extensive conservative treatment, he has elected to proceed with a right total knee arthroplasty. Principal Diagnosis Right knee replacement Discharge Data Allergies Allergy/AdvReac Type Severity Reaction Status Date / Time No Known Allergies Allergy Verified 03/23/20 08:33 Consultations 03/23/20 13:40 Consult Case Management - Discharge Planning Routine Procedures Performed Operation Date: 03/23/20 10:20 Actual Procedures p Right Total Knee Arthroplasty(Right) - Alex Taylor DO Ordered Studies 03/23/20 05:00 US - OR guided needle placemen Routine Hospital Course (1) Status post right knee replacement: On March 23, 2020 Dave arrived at [facility] and underwent a right knee replacement without complication. He had a spinal anesthetic. Postoperatively he was started on aspirin for DVT prophylaxis and transferred to the general orthopedic floors. His hospital course was uneventful. On postop day #1 his H&H was stable and his pain was well controlled. He was able to participate well with physical therapy doing ambulation and range of motion exercises. He was then discharged home. He will follow-up with orthopedics in 2 weeks. Total Time Total Time Spent Total Time Spent (In Minutes): 20 Discharge Plan Discharge Items Patient Disposition: Home - Home Health Services Reason For Visit: Right Knee Degenerative Joint Disease Discharge Diagnosis: Right knee replacement Activity: As commented below Non-emergency contact: Surgeon Call non-emergency contact if: your wound has increased redness and your wound has increased drainage Follow-up/Referrals: Juana Ortega MD [Primary Care Provider] - Diet: Regular Addtl Attending Provider Instructions: Activity and Therapy Recommendations: * If you are using [facility] then therapy will be provided at your home until they feel you have accomplished all of your goals. * If you are using [facility] then Physical Therapy will be provided until they feel you are ready to start Outpatient Physical Therapy. * If you are not using home therapy then Outpatient Physical Therapy should start about 3-5 days from your day of surgery. Therapy will last about 6-10 weeks * It is important not to put a pillow under your knee when you are relaxing or sleeping. It is just as important to make sure you are getting your knee perfectly straight as it is to regain your knee bend. * You were shown a series of exercises in the hospital. Do these exercises three times each day including the exercises you were shown in physical therapy. * Get up and walk several times each day. For the first four weeks, try not to stand or walk for more than one hour at a time. If you do stand or walk for more than one hour, you will not hurt anything, but your leg will likely swell. * As you feel comfortable, you may change from the walker or crutches to a cane and then to independent walking. Medications: * Narcotic You will likely be sent home from the hospital with a prescription for the narcotic pain medication that worked best throughout your stay. * Aspirin Most patients will be required to take Aspirin 81mg twice a day for 6 weeks after surgery. This is obtained [id number] and a prescription is not necessary. * Other medications may be prescribed for specific circumstances. If you have any questions, please call the office at . * Resume previous home medications unless otherwise instructed TEDs/Elastic Stockings: The white elastic stockings help limit swelling and prevent blood clots from forming in your legs.~ The more you wear them, the more they work. Wear them for six weeks. Dressing Care: Leave the Silverlon dressing in place for 7 days. After 7 days you may remove the dressing. If the incision is not draining then you may leave the evie open to air. If there is a little bit of drainage or if the evie are getting stuck on your clothing then cover the incision with a dry dressing. The evie will be removed at your 2 week follow-up appointment. Showering: You may shower with the Silverlon dressing in place. Do not let the shower spray hit the dressing directly. Pat the Silverlon dressing dry. If the dressing becomes wet underneath, then simply remove the dressing. Keep the incision dry until you are 7 days out from the day of surgery. After 7 days you may remove the Silverlon dressing and shower with the evie exposed. Let soapy water run over the evie and pat them dry. Do not scrub or soak the incision. Things To Watch For: * Drainage from the incision site that occurs more than one week after your surgery. * Increased redness at the incision site. * Fever above 102 degrees Fahrenheit. * Unusual chest pain or shortness of breath. * Call [facility] at with any of the above problems Follow-Up Visit: Follow-up with Dr. Taylor's PA (Alex Reynaga) 2-3 weeks after your day of surgery. He will remove your evie and answer any questions. If you have any additional questions or concerns, Dr Taylor is usually in the office at the same time and will be available An appointment was probably scheduled when you signed-up for surgery in the office. If you have any questions call Office Instructions: More detailed instructions as well as Frequently Asked Questions were provided in a folder by our office when you signed-up for surgery. Please review these instructions when you get home. If you have any further questions or concerns, please feel free to call the office at [phone] Pending Studies at Discharge: No Stand-Alone Forms: My [facility], Smoking Cessation Medications and DC Order Prescriptions: New aspirin 81 mg Tablet,Delayed Release (Dr/Ec) 81 mg PO BID 42 Days Qty: 0 RF: 0 Continued atorvastatin 10 mg tablet 10 mg PO DAILY Qty: 90 RF: 1 hydrochlorothiazide 25 mg tablet 25 mg PO QAM Qty: 90 RF: 1 levothyroxine 75 mcg tablet 75 mcg PO QAM Qty: 90 RF: 1 potassium chloride 10 mEq capsule, extended release 10 meq PO QAM Qty: 90 RF: 1 magnesium 200 mg tablet 200 mg PO DAILY RF: 0 omega 4-jex-qus-fish oil [Fish Oil] 360-1,200 mg capsule,delayed release(DR/EC) 1 cap PO QAM RF: 0 losartan 100 mg Tablet 100 mg PO QAM RF: 0 oxycodone-acetaminophen [Percocet] 5-325 mg tablet 1 tab PO Q6H PRN (Reason: pain) Qty: 20 RF: 0 Discharge Orders: Discharge Order (Routine); Ordered 03/24/20 Ordered By: Alex Taylor Admission Data Admit Date/Time: 03/23/20 11:30 Attending Provider: Alex Taylor Admit Provider: Brandon,Alex A Primary Care Provider: Juana Ortega Coding Level of Care Code D/C Day Management <30 mins Diagnoses Status post right knee replacement Z96.651
[2020-03-24] MEDS ORDERED: dexAMETHasone 4 MG TAB PO SCH (08:00)
[2020-03-24] MEDS ORDERED: LOSARTAN POTASSIUM 50 MG TAB PO SCH (09:00)
[2020-03-24] MEDS ORDERED: MAGNESIUM OXIDE 400 MG TAB PO SCH (09:00)
[2020-03-24] MEDS ORDERED: MULTIVITAMIN TAB PO SCH (09:00)
[2020-03-24] MEDS ORDERED: ATORVASTATIN 10 MG TAB PO SCH (09:00)
[2020-03-24] MEDS ORDERED: hydroCHLOROthiazide 25 MG TAB PO SCH (09:00)
[2020-03-24] MEDS ORDERED: POTASSIUM CHLORIDE 10 MEQ TABCR PO SCH (09:00)
== END 2020-03-24 13:58 | disposition home health service (06) ==
LOC: ASU 07:48 → 3E 07:48